=== PATIENT | female | born 1950 | race Caucasian/White ===

== ENCOUNTER 2018-02-22 07:58 | Outpatient (CLI) | payer MEDICARE, OTHER ==
--- NOTE | 2018-02-22 10:28 | MRI ---
MRI BRAIN WITHOUT CONTRAST: Date: 02/22/18 HISTORY: Repeated falls. FINDINGS: No restricted diffusion is seen. There are multiple foci of T2 prolongation in the periventricular wh ite matter consistent with chronic small vessel ischemic disease. No evidence of transcortical infarc t, acute hemorrhage, midline shift, or abnormal extra-axial fluid collections are noted. There is a t iny focus of decreased signal on the gradient echo sequences in the posterior limb of the left kinesiology internship al capsule which may be due to small calcification or old hemorrhage/hemosiderin. The ventricular siz e is appropriate and the basilar cisterns are patent. There is mild mucosal disease in the paranasal sinuses. IMPRESSION: 1. No evidence of acute intracranial process. 2. Chronic small vessel ischemic disease. POS: [facility]
== END 2018-02-22 07:59 | disposition home or self-care (01) ==
LOC: MRI 07:58
PROVIDERS: ATTEND Family Medicine
DX: R29.6 Repeated falls (principal); G93.89 Other specified disorders of brain
CPT/HCPCS: 70551

== ENCOUNTER 2018-06-09 17:32 | Inpatient (IN) | payer MEDICARE, OTHER ==
[2018-06-09 18:29] LABS: #Lymphocytes 0.9 thou/uL (1.20-3.40); #Monocytes 0.9 thou/uL (0.11-0.59); #Neutrophils 14.9 thou/uL (1.40-6.50); %Lymphocytes 5.2 % (21.0-51.0); %Monocytes 5.2 % (0.0-10.0); %Neutrophils 89.6 % (42.0-75.0); Hemoglobin 13.8 g/dL (12.0-16.0); Mean Corpuscular HGB CONC 33.9 g/dL (32.0-36.0); Mean Corpuscular Hemoglobin 33.4 pg (27.0-31.0); Mean Corpuscular Volume 98.7 fL (78.0-98.0); Mean Platelet Volume 6.7 fL (7.4-10.4); Platelet Count 241 thou/uL (130-400); RBC Distribution Width 11.7 % (11.5-14.5); Red Blood Cell (RBC) Count 4.12 mill/uL (4.20-5.40); White Blood Cell (WBC) Count 16.7 thou/uL (4.8-10.8)
[2018-06-09 18:47] LABS: ALT (SGPT) 33 U/L (8-55); AST (SGOT) 41 U/L (5-34); Albumin 3.8 g/dL (3.4-4.8); Alkaline Phosphatase 66 U/L (40-150); Anion Gap 13 mmol/L (10-20); BUN (Urea Nitrogen) 14 mg/dL (9.8-20.1); Bilirubin, Total 0.4 mg/dL (0.2-1.2); Calc. Creatinine Clearance 0 mL/min (70-130); Calcium 9.7 mg/dL (7.8-10.44); Carbon Dioxide 24 mmol/L (23-31); Chloride 100 mmol/L (98-107); Estimated GFR-MDRD 50; Globulin 3.3 g/dL (2.4-3.5); Glucose 122 mg/dL (80-115); Potassium 3.7 mmol/L (3.5-5.1); Protein, Total 7.1 g/dL (6.0-8.3); Sodium 133 mmol/L (136-145)
[2018-06-09] MEDS ORDERED: Ibuprofen 200 MG TAB ONE (20:17)
[2018-06-09] MEDS ORDERED: Acetaminophen 325 MG TAB ONE (20:17)
[2018-06-09] MEDS ORDERED: Piperacillin/Tazobactam 3.375 GM VIAL ONE (20:17)
--- NOTE | 2018-06-09 20:29 | RAD ---
TWO VIEWS RIGHT FOREARM: 06/09/18 HISTORY: Possible cellulitis. Sepsis. FINDINGS: No fracture. No cortical irregularity or periosteal reaction. There is minimal soft tissue swelling i nvolving the proximal forearm soft tissues. IMPRESSION: Minimal soft tissue swelling of the proximal forearm soft tissues. POS: [facility]
--- NOTE | 2018-06-09 21:35 | RAD ---
RIGHT HUMERUS TWO VIEWS: 05/30/18 HISTORY: Possible cellulitis. Sepsis. COMPARISON: 06/04/16. FINDINGS: There does appear to be some soft tissue swelling. No fractures. No cortical irregularity. No periost eal reaction or bone demineralization. IMPRESSION: There appears to be soft tissue swelling predominantly along the distal aspect of the humerus. If con cern for soft tissue infection, further evaluation with MRI may be beneficial. POS: [facility]
[2018-06-09] MEDS ORDERED: Ondansetron PF 4 MG/2 ML Vial IVP PRN (22:00)
[2018-06-09] MEDS ORDERED: Bisacodyl 5 MG TAB PO PRN (22:00)
[2018-06-09] MEDS ORDERED: Ondansetron ODT 4 MG TAB PO PRN (22:00)
[2018-06-09] MEDS ORDERED: Zolpidem Tartrate 5 MG TAB PO PRN (22:00)
[2018-06-09] MEDS ORDERED: Senokot S 8.6-50 MG TAB PO PRN (22:00)
[2018-06-09] MEDS ORDERED: Calcium Carbonate 500 MG ChewTAB PO PRN (22:00)
[2018-06-09] MEDS ORDERED: Acetaminophen 325 MG TAB PO PRN (22:00)
[2018-06-09] MEDS ORDERED: Sodium Chloride 0.9% 1,000 ML IV SCH (23:45)
[2018-06-10 00:34] VITALS: BMI 22.5
--- NOTE | 2018-06-10 00:42 | CT ---
POSTCONTRAST CT OF THE RIGHT UPPER EXTREMITY: 06/09/18 HISTORY: Cellulitis. Evaluate for necrotizing fasciitis. COMPARISON: None. FINDINGS: Postcontrast CT of the right upper extremity demonstrates mild induration of the lateral subcutaneous fat at the level of the distal humerus/humeral condyle. There is also induration of the fat along th e posterior aspect of the elbow and posterior aspect of the proximal forearm. Inflammatory change clif ears to be confined predominantly to the subcutaneous fat. Fat planes between the muscles are preserv ed in the upper extremity, along the level of the humerus. Questionable loss of intramuscular fat hanh aida along the mid portion of the forearm. Evaluation is limited by technique. The distal forearm does demonstrate preservation of fat planes. With regard to the osseous structures, no evidence of fractu re, cortical irregularity or periosteal reaction. IMPRESSION: 1. Induration of the subcutaneous fat involving the distal humerus and proximal forearm as descr ibed above. No evidence of a drainable abscess. 2. Fat plane between the muscles are preserved at the level of the upper forearm. There is quest ionable loss of some of the fat planes in the mid forearm. Findings may be due to technical limitatio ns. Correlate clinically. If there is concern, consider orthopedic consultation/general surgical cons ultation. Additionally, MRI can be performed to better interrogate the muscles of the forearm. POS: [facility]
[2018-06-10] MEDS: Sodium Chloride 0.9% 1,000 ML IV SCH ×2 (00:54→11:50)
[2018-06-10] MEDS ORDERED: Piperacillin/Tazobactam 3.375 GM in Sodium Chloride 0.9% 100 ML IVPB SCH (02:00)
[2018-06-10 05:13] LABS: #Lymphocytes 0.8 thou/uL (1.20-3.40); #Monocytes 0.6 thou/uL (0.11-0.59); #Neutrophils 10.3 thou/uL (1.40-6.50); %Basophils 0.2 % (0.0-1.0); %Eosinophils 0.1 % (0.0-10.0); %Lymphocytes 7.1 % (21.0-51.0); %Monocytes 5.2 % (0.0-10.0); %Neutrophils 87.4 % (42.0-75.0); Hemoglobin 11.8 g/dL (12.0-16.0); Mean Corpuscular HGB CONC 33.7 g/dL (32.0-36.0); Mean Corpuscular Hemoglobin 33.4 pg (27.0-31.0); Mean Platelet Volume 6.6 fL (7.4-10.4); Platelet Count 189 thou/uL (130-400); RBC Distribution Width 11.7 % (11.5-14.5); Red Blood Cell (RBC) Count 3.53 mill/uL (4.20-5.40); White Blood Cell (WBC) Count 11.8 thou/uL (4.8-10.8)
[2018-06-10 05:30] LABS: Anion Gap 10 mmol/L (10-20); BUN (Urea Nitrogen) 16 mg/dL (9.8-20.1); Calc. Creatinine Clearance 53 mL/min (70-130); Calcium 7.7 mg/dL (7.8-10.44); Carbon Dioxide 19 mmol/L (23-31); Chloride 110 mmol/L (98-107); Estimated GFR-MDRD 69; Glucose 99 mg/dL (80-115); Potassium 3.2 mmol/L (3.5-5.1); Sodium 136 mmol/L (136-145)
--- NOTE | 2018-06-10 07:27 | HP ---
CHIEF COMPLAINT: Right upper arm cellulitis. HISTORY OF PRESENT ILLNESS: This is a 68-year-old female with past medical history of GERD; hyperlipidemia; right breast cancer, status post mastectomy; presenting with right upper arm edema and cellulitis. The patient states that she had a mastectomy 8 years ago, and she has been having sepsis and cellulitis for the past 2 years status post mastectomy which was done 8 years ago. The patient also stated that they did a right lymph node removal, and she has been saying that, that was done 6 years ago and now she is having recurrent lymphedema and cellulitis of the right upper arm. The patient does not have any injury or trauma to the right arm. The patient does not have any recent infection that she knows of. The patient states that the right arm spontaneously became erythematous, edematous, and started causing severe pain. The patient denies any fever, nausea, vomiting, dizziness, headaches, chest pain, palpitations, abdominal pain, dysuria, hematuria, diarrhea, or constipation. REVIEW OF SYSTEMS: Positive for right upper arm cellulitis with erythema, increased warmth, otherwise as documented in the HPI. All other systems reviewed and are negative. PAST MEDICAL HISTORY: GERD; hyperlipidemia; right breast cancer, status post mastectomy. PAST SURGICAL HISTORY: Right mastectomy, appendectomy, and x2. FAMILY HISTORY: Reviewed and noncontributory to this visit. SOCIAL HISTORY: The patient drinks occasionally. Denies illicit drug use. The patient does not smoke. PSYCHIATRIC HISTORY: No previous psych history. ALLERGIES: NO KNOWN DRUG ALLERGIES. CURRENT MEDICATIONS: The patient takes; 1. Fenofibrate 48 mg. 2. Letrozole 2.5 mg. 3. Pantoprazole 40 mg. 4. Caltrate units. 5. Iron 65 mg orally. 6. Simvastatin 40 mg. 7. Clindamycin 300 mg t.i.d. PHYSICAL EXAMINATION: VITAL SIGNS: Blood pressure is 101/57, pulse is 117, respiratory rate of 20, temperature of 98.5, and O2 saturation of 94. GENERAL: The patient is lying in bed, does not appear to be in any acute distress. The patient is very pleasant, able to speak to me in full sentences. Appears her stated age. HEENT: Normocephalic, atraumatic. Pupils are equally round and reactive to light. Extraocular movements are intact. No scleral icterus. No conjunctival pallor. Mucous membranes are moist. NECK: Trachea is midline. Full range of motion. No JVD. Supple. LUNGS: Clear to auscultation bilaterally. No wheezing, no rales, no rhonchi appreciated. CARDIAC: Positive S1 and S2. Regular rate and rhythm on exam. ABDOMEN: Soft, nontender, and nondistended. Positive bowel sounds in all quadrants. No rigidity. No guarding. No peritoneal signs. No rebound. EXTREMITIES: The patient has right upper extremity cellulitis that is noted with some warmth and there is erythema noted. There is no trauma to the right upper extremity that can be appreciated. Left upper extremity, the patient has 5/5 strength and good pulses. There is no edema noted. Lower extremities, the patient has 5/5 lower extremity strength. No edema noted. Good pulses bilaterally. NEUROLOGIC: Cranial nerves 2 through 12 grossly intact. No neurologic deficits noted. SKIN: Refer to description of the right upper extremity in the extremity part of the physical exam. PSYCHIATRIC: Normal affect. IMAGING STUDIES: CT of the right upper extremity shows that there is inflammation that is confined to the subcu tissue. There is no gas that can be appreciated. LABORATORY DATA: WBC is 16.7, hemoglobin is 13.8, hematocrit is 40.6, MCV is 98.7, and platelet count is 241. Sodium is 133, potassium is 3.7, chloride is 100, carbon dioxide of 24, BUN is 14, creatinine is 1.09, and glucose is 126. Lactic acid of 1.5. AST is 41, ALT is 33. C-reactive protein of 17.20. ASSESSMENT AND PLAN: This is a 68-year-old female, being admitted for: 1. 2. Sepsis secondary to right upper extremity cellulitis. At this time, we are going to start the patient on vancomycin and we are going to continue vancomycin. We are going to trend the patient's CBCs. We will give the patient p.r.n. medications for pain and fever. We will continue to monitor the patient's progress. 3. History of hyperlipidemia. We will continue the patient on current treatment. 4. Gastroesophageal reflux disease. We will continue the patient on proton pump inhibitors. 5. History of breast CA. At this point, the patient is having recurrent right upper extremity cellulitis due to right lymph node removal. Otherwise, the patient has been stable. We will continue to monitor the patient. 6. Deep venous thrombosis and gastrointestinal prophylaxis. Job ID: [id number]
[2018-06-10] MEDS: Calcium Carbonate + Vit D 1 TAB PO SCH (08:09)
[2018-06-10] MEDS: Enoxaparin Sodium 40 MG/0.4 ML SYRINGE SC SCH (08:09)
[2018-06-10] MEDS: Ferrous Sulfate 325 MG TAB PO SCH (08:10)
[2018-06-10] MEDS ORDERED: Prevnar 13-Val Conj/PF 0.5 ML SYRINGE IM ONE (09:00)
--- NOTE | 2018-06-10 12:25 | PDOC.PN ---
- Subjective Encounter Start Date: 06/10/18 Encounter Start Time: 12:24 -: old records requested/rev Pt seen and examiend, chart reviewed in its entirety. This is my first visit with this patient follow up for NoF/c, no n/V/d/C, no CP or SOB All systems reviewed and neg x as above - Objective Resuscitation Status - Order Detail: 06/09/18 22:00 Resuscitation Status Routine Resuscitation Status: FULL: Full Resuscitation MAR Reviewed: Yes Vital Signs & Weight: Vital Signs (12 hours) Temp Pulse Resp BP Pulse Ox 06/10/18 08:00 97.3 F L 73 16 102/58 L 96 06/10/18 06:10 97.5 F L 69 18 94/56 L 93 L 06/10/18 03:33 97.5 F L 74 16 96/52 L 96 06/10/18 00:52 82 98/57 L Weight Weight 115 lb 3.2 oz Result Diagrams: 06/10/18 04:50 06/10/18 04:50 Radiology Reviewed by me: Yes EKG Reviewed by me: Yes Phys Exam - Physical Examination Constitutional: NAD HEENT: PERRLA, moist MMs, sclera anicteric, oral pharynx no lesions Neck: no nodes, no JVD, supple, full ROM Respiratory: no wheezing, no rales, no rhonchi, clear to auscultation bilateral Cardiovascular: RRR, no significant murmur Gastrointestinal: soft, non-tender, no distention, positive bowel sounds Musculoskeletal: edema present Neurological: non-focal, normal sensation, moves all 4 limbs Lymphatic: no nodes Psychiatric: normal affect, A&O x 3 Skin: no rash, normal turgor, cap refill <2 seconds Dx/Plan (1) Cellulitis of arm, right Code(s): L03.113 - CELLULITIS OF RIGHT UPPER LIMB Status: Acute (2) HTN (hypertension) Code(s): I10 - ESSENTIAL (PRIMARY) HYPERTENSION Status: Acute (3) HX: breast cancer Code(s): Z85.3 - PERSONAL HISTORY OF MALIGNANT NEOPLASM OF BREAST Status: Acute (4) Lymphedema of arm Code(s): I89.0 - LYMPHEDEMA, NOT ELSEWHERE CLASSIFIED Status: Acute - Plan * .
[2018-06-10] MEDS ORDERED: Clindamycin/D5W 300 MG/50 ML BAG IVPB SCH (12:45)
[2018-06-10] MEDS: cefTRIAXone\\ROCEPHIN 2 GM in Sodium Chloride 0.9% 100 ML IVPB SCH (14:06)
[2018-06-10] MEDS: Clindamycin/D5W 900 MG in Premix Bag 1 BAG IVPB SCH ×2 (14:06→21:24)
[2018-06-10] MEDS: Fenofibrate 48 MG TAB PO SCH (14:49)
[2018-06-10] MEDS ORDERED: traMADol HCl 50 MG TAB PO PRN ×2 (16:43)
[2018-06-10] MEDS ORDERED: Vancomycin HCl 1 GM in Premix Bag 1 BAG IVPB SCH (21:00)
[2018-06-10] MEDS: Simvastatin 40 MG TAB PO SCH (21:18)
[2018-06-10] MEDS: Letrozole 2.5 MG TAB PO SCH (21:18)
[2018-06-11] MEDS: Clindamycin/D5W 900 MG in Premix Bag 1 BAG IVPB SCH ×3 (05:50→20:10)
[2018-06-11] MEDS: Sodium Chloride 0.9% 1,000 ML IV SCH ×2 (05:51→12:35)
[2018-06-11] MEDS ORDERED: Diabetic Tussin 200 MG/10 ML UDCUP PO PRN (08:21)
[2018-06-11] MEDS ORDERED: Sodium Chloride 0.65% Nasal 44 ML BOT EA NARE PRN (08:21)
[2018-06-11] MEDS ORDERED: hydrALAZINE 20 MG/ML VIAL SLOW IVP PRN (08:21)
[2018-06-11] MEDS ORDERED: Eucerin (Mineral Oil/Petrolatum,White) 30 gm Jar TOP PRN (08:21)
[2018-06-11] MEDS ORDERED: HYDROcodone/Acetaminophen 5/325 mg Tablet PO PRN (08:21)
[2018-06-11] MEDS ORDERED: Cepastat Lozenges 1 LOZ PO PRN (08:21)
[2018-06-11] MEDS ORDERED: Loperamide HCl 2 MG CAP PO PRN (08:21)
[2018-06-11] MEDS ORDERED: Artificial Tears 18 DROP/0.9 ML EA EYE PRN (08:21)
[2018-06-11] MEDS ORDERED: Loratadine 10 MG TAB PO PRN (08:21)
[2018-06-11] MEDS: Calcium Carbonate + Vit D 1 TAB PO SCH (09:44)
[2018-06-11] MEDS: Fenofibrate 48 MG TAB PO SCH (09:44)
[2018-06-11] MEDS: Ferrous Sulfate 325 MG TAB PO SCH (09:45)
[2018-06-11] MEDS: Saccharomyces boulardii 250 MG CAP PO SCH (09:45)
[2018-06-11] MEDS: Enoxaparin Sodium 40 MG/0.4 ML SYRINGE SC SCH (09:45)
[2018-06-11] MEDS ORDERED: Potassium Chloride 20 MEQ TAB PO SCH (11:30)
--- NOTE | 2018-06-11 11:31 | PDOC.PN ---
- Subjective Encounter Start Date: 06/11/18 Encounter Start Time: 08:10 -: old records requested/rev Patient seen and examined. No new complaints. No overnight events - Objective Resuscitation Status - Order Detail: 06/09/18 22:00 Resuscitation Status Routine Resuscitation Status: FULL: Full Resuscitation MAR Reviewed: Yes Vital Signs & Weight: Vital Signs (12 hours) Temp Pulse Resp BP Pulse Ox 06/11/18 08:00 98.1 F 78 18 102/63 93 L 06/11/18 04:00 98.5 F 85 18 110/66 94 L Weight Weight 115 lb 3.2 oz Result Diagrams: 06/10/18 04:50 06/10/18 04:50 Phys Exam - Physical Examination Constitutional: NAD HEENT: PERRLA, moist MMs, sclera anicteric Neck: no JVD, supple Respiratory: no wheezing, no rales, no rhonchi Cardiovascular: RRR, no significant murmur, no rub Gastrointestinal: soft, non-tender, no distention, positive bowel sounds Musculoskeletal: no edema, pulses present right UE lymphoedema with cellulitis Neurological: non-focal, normal sensation, moves all 4 limbs Lymphatic: no nodes Psychiatric: normal affect, A&O x 3 Skin: no rash, normal turgor Dx/Plan (1) Cellulitis of arm, right Code(s): L03.113 - CELLULITIS OF RIGHT UPPER LIMB Status: Acute (2) Hypokalemia Code(s): E87.6 - HYPOKALEMIA Status: Acute (3) Dyslipidemia Code(s): E78.5 - HYPERLIPIDEMIA, UNSPECIFIED Status: Chronic (4) HTN (hypertension) Code(s): I10 - ESSENTIAL (PRIMARY) HYPERTENSION Status: Chronic (5) HX: breast cancer Code(s): Z85.3 - PERSONAL HISTORY OF MALIGNANT NEOPLASM OF BREAST Status: Chronic (6) Lymphedema of arm Code(s): I89.0 - LYMPHEDEMA, NOT ELSEWHERE CLASSIFIED Status: Chronic - Plan cont current plan of care, plan discussed w/ family, continue antibiotics * medication reviewed as below * symptomatic treatment * discussed with family * replace potassium * continue IV antibiotics today, rocephin and clindamycin * repeat labs tomorrow. Review of Systems - Review of Systems ENT: negative: Ear Pain, Ear Discharge, Nose Pain, Nose Discharge, Nose Congestion, Mouth Pain, Mouth Swelling, Throat Pain, Throat Swelling, Other Respiratory: negative: Cough, Dry, Shortness of Breath, Hemoptysis, SOB with Excertion, Pleuritic Pain, Sputum, Wheezing Cardiovascular: negative: chest pain, palpitations, orthopnea, paroxysmal nocturnal dyspnea, edema, light headedness, other Gastrointestinal: negative: Nausea, Vomiting, Abdominal Pain, Diarrhea, Constipation, Melena, Hematochezia, Other Genitourinary: negative: Dysuria, Frequency, Incontinence, Hematuria, Retention , Other Musculoskeletal: Arm Pain. negative: Neck Pain, Shoulder Pain, Back Pain, Hand Pain, Leg Pain, Foot Pain, Other - Medications/Allergies Allergies/Adverse Reactions: Allergies Allergy/AdvReac Type Severity Reaction Status Date / Time No Known Drug Allergies Allergy Verified 06/10/18 01:09 Medications: Current Medications Acetaminophen (Tylenol) 500 mg PO Q6H PRN PRN Reason: Mild Pain (1-3) Hydrocodone Bitart/Acetaminophen ([place] 5/325) 1 tab PO Q4H PRN PRN Reason: Moderate Pain (4-6) Artificial Tears (Tears Naturale) 2 drop EA EYE PRN PRN PRN Reason: Dry Eyes Bisacodyl (Dulcolax) 10 mg PO DAILYPRN PRN PRN Reason: Constipation Calcium Carbonate (Tums) 1,000 mg PO Q4H PRN PRN Reason: Heartburn or Indigestion Calcium/Vitamin D (Caltrate 600 + Vit D) 2 tab PO DAILY [facility] Last Admin: 06/11/18 09:44 Dose: 2 tab Cholecalciferol (Vitamin D3) 1,000 units PO DAILY [facility] Last Admin: 06/11/18 09:44 Dose: 1,000 units Enoxaparin Sodium (Lovenox) 40 mg SC 0900 [facility] Last Admin: 06/11/18 09:45 Dose: 40 mg Fenofibrate (Tricor) 48 mg PO DAILY [facility] Last Admin: 06/11/18 09:44 Dose: 48 mg Ferrous Sulfate (Feosol) 325 mg PO DAILY [facility] Last Admin: 06/11/18 09:45 Dose: 325 mg Guaifenesin (Robitussin Sf) 200 mg PO Q4H PRN PRN Reason: Cough Hydralazine HCl (Apresoline) 10 mg SLOW IVP Q4H PRN PRN Reason: SBP > 180 and HR < 70 Sodium Chloride (Normal Saline 0.9%) 1,000 mls @ 100 mls/hr IV .Q10H [facility] Last Admin: 06/11/18 05:51 Dose: 1,000 mls Ceftriaxone Sodium 2 gm/ (Sodium Chloride) 100 mls @ 200 mls/hr IVPB Q24HR [facility] Last Admin: 06/10/18 14:06 Dose: 100 mls Clindamycin Phosphate/Dextrose (900 mg/ Device) 50 mls @ 100 mls/hr IVPB Q8HR [facility] Stop: 06/13/18 06:29 Last Admin: 06/11/18 05:50 Dose: 50 mls Letrozole (Femara) 2.5 mg PO HS [facility] Last Admin: 06/10/18 21:18 Dose: 2.5 mg Loperamide HCl (Imodium) 2 mg PO PRN PRN PRN Reason: Diarrhea/Loose Stools Loratadine (Claritin) 10 mg PO DAILYPRN PRN PRN Reason: Sinus Symptoms Mineral Oil/White Petrolatum (Eucerin Cream) 0 gm TOP BIDPRN PRN PRN Reason: Dry Skin Miscellaneous Medication (Pharmacy To Dose) 0 each IVPB PRN PRN PRN Reason: [facility] Pharmacy to Dose Ondansetron HCl (Zofran Odt) 4 mg PO Q6H PRN PRN Reason: Nausea/Vomiting Ondansetron HCl (Zofran) 4 mg IVP Q6H PRN PRN Reason: Nausea/Vomiting Pantoprazole Sodium (Protonix) 40 mg PO DAILY [facility] Last Admin: 06/11/18 09:45 Dose: 40 mg Saccharomyces Boulardii (Florastor) 250 mg PO DAILY [facility] Last Admin: 06/11/18 09:45 Dose: 250 mg Senna/Docusate Sodium (Senokot S) 2 tab PO BIDPRN PRN PRN Reason: Constipation Simvastatin (Zocor) 40 mg PO HS [facility] Last Admin: 06/10/18 21:18 Dose: 40 mg Sodium Chloride (Flush - Normal Saline) 10 ml IVF Q12HR [facility] Last Admin: 06/11/18 09:45 Dose: Not Given Sodium Chloride (Flush - Normal Saline) 10 ml IVF PRN PRN PRN Reason: Saline Flush Sodium Chloride ([place] Nasal [place] 0.65%) 0 ml EA NARE QIDPRN PRN PRN Reason: Nasal Congestion Throat Lozenges (Cepastat Lozenges) 1 basia PO Q2H PRN PRN Reason: Sore Throat Tramadol HCl (Ultram) 50 mg PO Q4H PRN PRN Reason: Moderate Pain (4-6) Tramadol HCl (Ultram) 100 mg PO Q4H PRN PRN Reason: Severe Pain (7-10) Last Admin: 06/10/18 22:16 Dose: 100 mg Zolpidem Tartrate (Ambien) 5 mg PO HSPRN PRN PRN Reason: Insomnia
[2018-06-11] MEDS: cefTRIAXone\\ROCEPHIN 2 GM in Sodium Chloride 0.9% 100 ML IVPB SCH (12:35)
--- NOTE | 2018-06-11 14:28 | PQF ---
CLINICAL DOCUMENTATION IMPROVEMENT CLARIFICATION FORM: ICD-10 Updated PLEASE DO AN ADDENDUM TO THE PROGRESS NOTE WITH ANY DOCUMENTATION UPDATES OR ADDITIONS AND CARRY THROUGH TO DC SUMMARY. THANK YOU. DATE: 06/11/18 ATTN: DR. GAN Please exercise your independent, professional judgment in responding to the clarification form. Clinical indicators are provided on the bottom of this form for your review Please check appropriate box(s) to clarify if the following diagnosis has been ruled in or ruled out: "SEPSIS" [ x ] Ruled in diagnosis [ x ] Continue to treat [ ] Resolved [ ] Ruled out diagnosis [ ] Cannot rule out diagnosis [ ] Other diagnosis [ ] Unable to determine In addition, please specify: Present on Admission (POA): [ x ] Yes [ ] No [ ] Unable to determine For continuity of documentation, please document condition throughout progress notes and discharge summary. Thank You. CLINICAL INDICATORS - SIGNS / SYMPTOMS / LABS ER NOTE: "SEPSIS" H&P: "SEPSIS" TEMP 117 TEMP 102.5 BP 97/53 WBC 16.7 CRP 17.20 RISKS: CELLULITIS- RIGHT UPPER ARM TREATMENT: IV FLUIDS (ER-PRESENT) IV ZOSYN (ER) IV VANCOMYCIN (ER) IV CLINDAMYCIN (06/10-PRESENT) IV ROCEPHIN (06/10-PRESENT) BLOOD CULTURES (This form is maintained as a part of the permanent medical record) 2014 [employer]. All Rights Reserved SHARITA [email or web address] Office: [phone] [facility]
[2018-06-11] MEDS: Letrozole 2.5 MG TAB PO SCH (20:10)
[2018-06-11] MEDS: Simvastatin 40 MG TAB PO SCH (20:10)
[2018-06-12] MEDS: Acetaminophen 500 MG TAB PO PRN ×2 (00:15→20:02)
[2018-06-12] MEDS: Sodium Chloride 0.9% 1,000 ML IV SCH ×3 (00:15→14:11)
[2018-06-12] MEDS: Clindamycin/D5W 900 MG in Premix Bag 1 BAG IVPB SCH ×2 (05:10→13:26)
[2018-06-12] MEDS: Enoxaparin Sodium 40 MG/0.4 ML SYRINGE SC SCH (08:45)
[2018-06-12] MEDS: Calcium Carbonate + Vit D 1 TAB PO SCH (08:45)
[2018-06-12] MEDS: Ferrous Sulfate 325 MG TAB PO SCH (08:46)
[2018-06-12] MEDS: Fenofibrate 48 MG TAB PO SCH (08:46)
[2018-06-12] MEDS: Saccharomyces boulardii 250 MG CAP PO SCH (08:46)
--- NOTE | 2018-06-12 09:43 | PDOC.PN ---
- Subjective Encounter Start Date: 06/12/18 Encounter Start Time: 08:20 Patient seen and examined. No new complaints. No overnight events - Objective Resuscitation Status - Order Detail: 06/09/18 22:00 Resuscitation Status Routine Resuscitation Status: FULL: Full Resuscitation MAR Reviewed: Yes Vital Signs & Weight: Vital Signs (12 hours) Temp Pulse Resp BP Pulse Ox 06/12/18 09:31 98.2 F 69 18 134/76 95 Weight Weight 115 lb 3.2 oz I&O: 06/11/18 06/12/18 06/13/18 06:59 06:59 06:59 Intake Total 2400 Balance 2400 Result Diagrams: 06/10/18 04:50 06/10/18 04:50 Phys Exam - Physical Examination Constitutional: NAD HEENT: PERRLA, moist MMs, sclera anicteric Neck: no JVD, supple Respiratory: no wheezing, no rales, no rhonchi Cardiovascular: RRR, no significant murmur, no rub Gastrointestinal: soft, non-tender, no distention, positive bowel sounds Musculoskeletal: no edema, pulses present right UE cellulitis Neurological: non-focal, normal sensation, moves all 4 limbs Lymphatic: no nodes Psychiatric: normal affect, A&O x 3 Skin: no rash, normal turgor Dx/Plan (1) Cellulitis of arm, right Code(s): L03.113 - CELLULITIS OF RIGHT UPPER LIMB Status: Acute (2) Hypokalemia Code(s): E87.6 - HYPOKALEMIA Status: Acute (3) Dyslipidemia Code(s): E78.5 - HYPERLIPIDEMIA, UNSPECIFIED Status: Chronic (4) HTN (hypertension) Code(s): I10 - ESSENTIAL (PRIMARY) HYPERTENSION Status: Chronic (5) HX: breast cancer Code(s): Z85.3 - PERSONAL HISTORY OF MALIGNANT NEOPLASM OF BREAST Status: Chronic (6) Lymphedema of arm Code(s): I89.0 - LYMPHEDEMA, NOT ELSEWHERE CLASSIFIED Status: Chronic - Plan cont current plan of care, continue antibiotics * medication reviewed as below * symptomatic treatment * continue IV antibiotics * pain controlled * expecting discharge in 24 - 48 hours. Review of Systems - Review of Systems ENT: negative: Ear Pain, Ear Discharge, Nose Pain, Nose Discharge, Nose Congestion, Mouth Pain, Mouth Swelling, Throat Pain, Throat Swelling, Other Respiratory: negative: Cough, Dry, Shortness of Breath, Hemoptysis, SOB with Excertion, Pleuritic Pain, Sputum, Wheezing Cardiovascular: negative: chest pain, palpitations, orthopnea, paroxysmal nocturnal dyspnea, edema, light headedness, other Gastrointestinal: negative: Nausea, Vomiting, Abdominal Pain, Diarrhea, Constipation, Melena, Hematochezia, Other Genitourinary: negative: Dysuria, Frequency, Incontinence, Hematuria, Retention , Other Musculoskeletal: negative: Neck Pain, Shoulder Pain, Arm Pain, Back Pain, Hand Pain, Leg Pain, Foot Pain, Other Skin: negative: Rash, Lesions, Rob, Bruising, Other - Medications/Allergies Allergies/Adverse Reactions: Allergies Allergy/AdvReac Type Severity Reaction Status Date / Time No Known Drug Allergies Allergy Verified 06/10/18 01:09 Medications: Current Medications Acetaminophen (Tylenol) 500 mg PO Q6H PRN PRN Reason: Mild Pain (1-3) Last Admin: 06/12/18 00:15 Dose: 500 mg Hydrocodone Bitart/Acetaminophen ([place] 5/325) 1 tab PO Q4H PRN PRN Reason: Moderate Pain (4-6) Artificial Tears (Tears Naturale) 2 drop EA EYE PRN PRN PRN Reason: Dry Eyes Bisacodyl (Dulcolax) 10 mg PO DAILYPRN PRN PRN Reason: Constipation Calcium Carbonate (Tums) 1,000 mg PO Q4H PRN PRN Reason: Heartburn or Indigestion Calcium/Vitamin D (Caltrate 600 + Vit D) 2 tab PO DAILY [facility] Last Admin: 06/12/18 08:45 Dose: 2 tab Cholecalciferol (Vitamin D3) 1,000 units PO DAILY [facility] Last Admin: 06/12/18 08:46 Dose: 1,000 units Enoxaparin Sodium (Lovenox) 40 mg SC 0900 [facility] Last Admin: 06/12/18 08:45 Dose: 40 mg Fenofibrate (Tricor) 48 mg PO DAILY [facility] Last Admin: 06/12/18 08:46 Dose: 48 mg Ferrous Sulfate (Feosol) 325 mg PO DAILY [facility] Last Admin: 06/12/18 08:46 Dose: 325 mg Guaifenesin (Robitussin Sf) 200 mg PO Q4H PRN PRN Reason: Cough Hydralazine HCl (Apresoline) 10 mg SLOW IVP Q4H PRN PRN Reason: SBP > 180 and HR < 70 Sodium Chloride (Normal Saline 0.9%) 1,000 mls @ 100 mls/hr IV .Q10H [facility] Last Admin: 06/12/18 00:15 Dose: 1,000 mls Ceftriaxone Sodium 2 gm/ (Sodium Chloride) 100 mls @ 200 mls/hr IVPB Q24HR [facility] Last Admin: 06/11/18 12:35 Dose: 100 mls Clindamycin Phosphate/Dextrose (900 mg/ Device) 50 mls @ 100 mls/hr IVPB Q8HR [facility] Stop: 06/13/18 06:29 Last Admin: 06/12/18 05:10 Dose: 50 mls Letrozole (Femara) 2.5 mg PO HS [facility] Last Admin: 06/11/18 20:10 Dose: 2.5 mg Loperamide HCl (Imodium) 2 mg PO PRN PRN PRN Reason: Diarrhea/Loose Stools Loratadine (Claritin) 10 mg PO DAILYPRN PRN PRN Reason: Sinus Symptoms Mineral Oil/White Petrolatum (Eucerin Cream) 0 gm TOP BIDPRN PRN PRN Reason: Dry Skin Miscellaneous Medication (Pharmacy To Dose) 0 each IVPB PRN PRN PRN Reason: [facility] Pharmacy to Dose Ondansetron HCl (Zofran Odt) 4 mg PO Q6H PRN PRN Reason: Nausea/Vomiting Ondansetron HCl (Zofran) 4 mg IVP Q6H PRN PRN Reason: Nausea/Vomiting Pantoprazole Sodium (Protonix) 40 mg PO DAILY [facility] Last Admin: 06/12/18 08:46 Dose: 40 mg Saccharomyces Boulardii (Florastor) 250 mg PO DAILY [facility] Last Admin: 06/12/18 08:46 Dose: 250 mg Senna/Docusate Sodium (Senokot S) 2 tab PO BIDPRN PRN PRN Reason: Constipation Simvastatin (Zocor) 40 mg PO HS [facility] Last Admin: 06/11/18 20:10 Dose: 40 mg Sodium Chloride (Flush - Normal Saline) 10 ml IVF Q12HR [facility] Last Admin: 06/12/18 08:46 Dose: Not Given Sodium Chloride (Flush - Normal Saline) 10 ml IVF PRN PRN PRN Reason: Saline Flush Sodium Chloride ([place] Nasal [place] 0.65%) 0 ml EA NARE QIDPRN PRN PRN Reason: Nasal Congestion Throat Lozenges (Cepastat Lozenges) 1 basia PO Q2H PRN PRN Reason: Sore Throat Tramadol HCl (Ultram) 50 mg PO Q4H PRN PRN Reason: Moderate Pain (4-6) Tramadol HCl (Ultram) 100 mg PO Q4H PRN PRN Reason: Severe Pain (7-10) Last Admin: 06/10/18 22:16 Dose: 100 mg Zolpidem Tartrate (Ambien) 5 mg PO HSPRN PRN PRN Reason: Insomnia
[2018-06-12 10:54] LABS: #Eosinphils 0.1 thou/uL (0.0-0.7); #Lymphocytes 1.3 thou/uL (1.20-3.40); #Monocytes 0.8 thou/uL (0.11-0.59); #Neutrophils 9.6 thou/uL (1.40-6.50); %Basophils 0.1 % (0.0-1.0); %Eosinophils 0.8 % (0.0-10.0); %Lymphocytes 10.9 % (21.0-51.0); %Monocytes 6.4 % (0.0-10.0); %Neutrophils 81.8 % (42.0-75.0); Hemoglobin 12.9 g/dL (12.0-16.0); Mean Corpuscular Volume 99.9 fL (78.0-98.0); Mean Platelet Volume 6.7 fL (7.4-10.4); Platelet Count 232 thou/uL (130-400); RBC Distribution Width 12.1 % (11.5-14.5); Red Blood Cell (RBC) Count 3.92 mill/uL (4.20-5.40); White Blood Cell (WBC) Count 11.8 thou/uL (4.8-10.8)
[2018-06-12 11:17] LABS: Anion Gap 16 mmol/L (10-20); BUN (Urea Nitrogen) 8 mg/dL (9.8-20.1); CRP (Inflammatory) 5.36 mg/dL (= or < 0.5); Calc. Creatinine Clearance 63 mL/min (70-130); Calcium 8.1 mg/dL (7.8-10.44); Carbon Dioxide 16 mmol/L (23-31); Chloride 114 mmol/L (98-107); Estimated GFR-MDRD 83; Glucose 98 mg/dL (80-115); Magnesium 1.2 mg/dL (1.6-2.6); Potassium 3.6 mmol/L (3.5-5.1); Sodium 142 mmol/L (136-145)
[2018-06-12] MEDS: cefTRIAXone\\ROCEPHIN 2 GM in Sodium Chloride 0.9% 100 ML IVPB SCH (13:25)
[2018-06-12] MEDS: Simvastatin 40 MG TAB PO SCH (20:02)
[2018-06-12] MEDS: Letrozole 2.5 MG TAB PO SCH (20:03)
[2018-06-12] MEDS: Cephalexin 250 MG CAP PO SCH (20:03)
[2018-06-13] MEDS: Cephalexin 250 MG CAP PO SCH ×2 (08:06→14:39)
[2018-06-13] MEDS: Enoxaparin Sodium 40 MG/0.4 ML SYRINGE SC SCH (08:06)
[2018-06-13] MEDS: Fenofibrate 48 MG TAB PO SCH (08:08)
[2018-06-13] MEDS: Calcium Carbonate + Vit D 1 TAB PO SCH (08:08)
[2018-06-13] MEDS: Ferrous Sulfate 325 MG TAB PO SCH (08:08)
[2018-06-13] MEDS: Saccharomyces boulardii 250 MG CAP PO SCH (08:08)
--- NOTE | 2018-06-13 10:16 | PDOC.PN ---
- Subjective Encounter Start Date: 06/13/18 Encounter Start Time: 13:00 Subjective: Patient reports no further pain and improved redness in -: right upper extremity. No fever/chills. No other symptoms. - Objective Resuscitation Status - Order Detail: 06/09/18 22:00 Resuscitation Status Routine Resuscitation Status: FULL: Full Resuscitation MAR Reviewed: Yes Vital Signs & Weight: Vital Signs (12 hours) Temp Pulse Resp BP BP Pulse Ox 06/13/18 08:47 98.0 F 86 16 134/77 93 L 06/13/18 08:43 98.1 F 80 16 139/75 97 06/13/18 04:00 97.6 F 76 16 130/76 92 L 06/13/18 00:00 98 F 66 16 128/73 94 L Weight Weight 115 lb 3.2 oz I&O: 06/12/18 06/13/18 06/14/18 06:59 06:59 06:59 Intake Total 2400 400 Balance 2400 400 Result Diagrams: 06/12/18 10:37 06/12/18 10:37 Phys Exam - Physical Examination Constitutional: NAD HEENT: moist MMs Respiratory: no wheezing, no rales, no rhonchi Cardiovascular: RRR, no significant murmur Gastrointestinal: soft, positive bowel sounds 1+ edema to RUE, redness from mid upper arm to mid forearm, blanching, non-tender, no warmth Neurological: non-focal, moves all 4 limbs Psychiatric: normal affect, A&O x 3 Dx/Plan (1) Cellulitis of arm, right Code(s): L03.113 - CELLULITIS OF RIGHT UPPER LIMB Status: Acute Comment: Transitioned to oral Keflex yesterday, WBC almost normalized, no fever (2) Hypokalemia Code(s): E87.6 - HYPOKALEMIA Status: Acute (3) Dyslipidemia Code(s): E78.5 - HYPERLIPIDEMIA, UNSPECIFIED Status: Chronic (4) HTN (hypertension) Code(s): I10 - ESSENTIAL (PRIMARY) HYPERTENSION Status: Chronic (5) HX: breast cancer Code(s): Z85.3 - PERSONAL HISTORY OF MALIGNANT NEOPLASM OF BREAST Status: Chronic (6) Lymphedema of arm Code(s): I89.0 - LYMPHEDEMA, NOT ELSEWHERE CLASSIFIED Status: Chronic - Plan cont current plan of care, continue antibiotics, DVT proph w/lovenox, DVT proph w/SCDs Discharge home today. * . - Discharge Day Encounter end time: 13:25
[2018-06-13 13:03] VITALS: TEMP 97.9
--- NOTE | 2018-06-13 15:45 | DIS ---
DATE OF ADMISSION: 06/10/2018 DATE OF DISCHARGE: 06/13/2018 PRIMARY CARE PHYSICIAN: Dr. Davion Montano. REASON FOR ADMISSION: Cellulitis of right upper extremity. DIAGNOSES AT DISCHARGE: 1. Cellulitis of right upper extremity. 2. Lymphedema of right upper extremity. 3. Hypokalemia, resolved. 4. Dyslipidemia. 5. Hypertension. 6. History of breast cancer. CONSULTATIONS: None. PROCEDURES: 1. Forearm x-ray showing minimal soft tissue swelling and no fracture. 2. Humeral x-ray showing soft tissue swelling predominantly in the distal aspect of the humerus. No fracture. 3. Upper extremity CT showing induration of subcutaneous fat involving the distal humerus, proximal forearm without drain or abscess. No other specific concerns for necrotizing fasciitis. PERTINENT LABORATORY DATA: White blood cell count 16,000 at admission, down to 11,000 at discharge. SUMMARY OF HOSPITAL COURSE: This is a 68-year-old white female with a past medical history of right right-sided breast cancer status post mastectomy, who presented with right upper arm edema and cellulitis. She has had previous cellulitis fluid from this extremity before since the mastectomy. The patient was admitted. CT was done to rule out any evidence of necrotizing fasciitis or gas in the extremity. The patient had IV antibiotics and IV fluids. She had gradual improvement in her symptoms. The day of discharge, the redness was markedly improved and she had resolution of all tenderness to palpation. She had no fever and her white blood cell count improving. She was successfully transitioned over to oral Keflex in the hospital and is being discharged home. DISCHARGE MANAGEMENT: Discharged to home. FOLLOWUP: Follow up with Dr. Montano in 7 days. ACTIVITY: As tolerated. DIET: Regular diet. MEDICATIONS: 1. Keflex 500 mg 3 times a day, 21 caps dispensed. 2. Simvastatin 40 mg at night. 3. Protonix 40 mg daily. 4. Femara 2.5 mg at night. 5. Iron 65 mg daily. 6. Fenofibrate 48 mg daily. 7. Caltrate two tabs daily. 8. Vitamin D3 daily. 9. One A Day Proactive Vitamin 65+ one tab daily. Job ID: [id number]
[2018-06-13 18:27] VITALS: BP 124/75
== END 2018-06-13 15:09 | disposition home or self-care (01) | DRG 872 ==
LOC: ERS 17:32 → 2SW 22:13 → OBSVTOIN 06-10 01:35 → T4-B 06-10 06:12
PROVIDERS: ADMIT Internal Medicine; ATTEND Internal Medicine
DX: A41.9 Sepsis, unspecified organism (principal); L03.113 Cellulitis of right upper limb; I89.0 Lymphedema, not elsewhere classified; E87.6 Hypokalemia; E78.5 Hyperlipidemia, unspecified; I10 Essential (primary) hypertension; K21.9 Gastro-esophageal reflux disease without esophagitis; Z90.11 Acquired absence of right breast and nipple; Z85.3 Personal history of malignant neoplasm of breast; Z90.49 Acquired absence of other specified parts of digestive tract; Z98.890 Other specified postprocedural states
CPT/HCPCS: 36415; 80048; 80053; 83605; 83735; 85025; 86140; 87040; 96360; 96361; 96365; J0696; J1650; J2543; J3370; J3490; J7050

== ENCOUNTER 2018-07-19 07:02 | Emergency (ER) | payer MEDICARE, OTHER ==
[2018-07-19] MEDS ORDERED: cefTRIAXone\\ROCEPHIN 2 GM VIAL ONE (07:58)
[2018-07-19 09:06] LABS: #Basophils 0.1 thou/uL (0.0-0.2); #Lymphocytes 1.5 thou/uL (1.20-3.40); #Monocytes 0.7 thou/uL (0.11-0.59); #Neutrophils 8.2 thou/uL (1.40-6.50); %Basophils 0.7 % (0.0-1.0); %Eosinophils 0.4 % (0.0-10.0); %Monocytes 6.6 % (0.0-10.0); %Neutrophils 78.3 % (42.0-75.0); Hemoglobin 14.8 g/dL (12.0-16.0); Mean Corpuscular Hemoglobin 33.2 pg (27.0-31.0); Mean Platelet Volume 6.3 fL (7.4-10.4); Platelet Count 230 thou/uL (130-400); Red Blood Cell (RBC) Count 4.47 mill/uL (4.20-5.40); White Blood Cell (WBC) Count 10.5 thou/uL (4.8-10.8)
[2018-07-19 09:26] LABS: ALT (SGPT) 48 U/L (8-55); AST (SGOT) 55 U/L (5-34); Albumin 4.3 g/dL (3.4-4.8); Alkaline Phosphatase 89 U/L (40-150); Anion Gap 14 mmol/L (10-20); BUN (Urea Nitrogen) 9 mg/dL (9.8-20.1); Bilirubin, Total 0.5 mg/dL (0.2-1.2); Calc. Creatinine Clearance 0 mL/min (70-130); Calcium 10.9 mg/dL (7.8-10.44); Carbon Dioxide 23 mmol/L (23-31); Chloride 106 mmol/L (98-107); Estimated GFR-MDRD 75; Globulin 3.4 g/dL (2.4-3.5); Glucose 100 mg/dL (80-115); Potassium 3.6 mmol/L (3.5-5.1); Protein, Total 7.7 g/dL (6.0-8.3); Sodium 139 mmol/L (136-145)
== END 2018-07-19 11:20 | disposition home or self-care (01) ==
LOC: ERS 07:02
DX: L02.413 Cutaneous abscess of right upper limb (principal); R00.0 Tachycardia, unspecified; K21.9 Gastro-esophageal reflux disease without esophagitis; E78.5 Hyperlipidemia, unspecified; Z79.899 Other long term (current) drug therapy
CPT/HCPCS: 80053; 83605; 85025; 87040; 96365; 96367; J0696; J3370

== ENCOUNTER 2019-01-04 10:13 | Outpatient (CLI) | payer MEDICARE, OTHER ==
--- NOTE | 2019-01-04 13:06 | BD ---
DEXA BONE DENSITY STUDY: Date: 01/04/19 HISTORY: Postmenopausal. FINDINGS: Lumbar Spine: BMD (g/cm2) L1 1.092 T-Score: +0.9 L2 1.077 T-Score: +0.4 L3 1.009 T-Score: -0.7 L4 1.073 T-Score: +0.1 Total 1.061 T-Score: +0.1 Right Femoral Neck: 0.573 T-Score: -2.5 Total Femur: 0.804 T-Score: -1.1 IMPRESSION: Osteoporosis of the femoral neck and normal bone mineral density of the lumbar spine. POS: [facility]
== END 2019-01-04 10:14 | disposition home or self-care (01) ==
LOC: BICMAMMO 10:13
PROVIDERS: ATTEND Internal Medicine Rheumatology
DX: M81.0 Age-related osteoporosis without current pathological fracture (principal)
CPT/HCPCS: 77080

== ENCOUNTER 2019-07-15 09:09 | Outpatient (CLI) | payer OTHER ==
--- NOTE | 2019-07-15 11:24 | BD ---
BONE DENSITOMETRY USING DEXA: Date: 07/15/2019 HISTORY: Osteoporosis. FINDINGS: Lumbar Spine: BMD (g/cm2) L1 1.181 T-Score: 1.7 Z-Score: 3.6 L2 1.059 T-Score: 0.3 Z-Score: 2.4 L3 1.020 T-Score: -0.6 Z-Score: 1.6 L4 1.090 T-Score: 0.3 Z-Score: 2.5 L1-L4 1.080 T-Score: 0.3 Z-Score: 2.4 Femoral Neck: 0.570 T-Score: -2.5 Z-Score: -0.7 Total Femur: 0.773 T-Score: -1.4 Z-Score: 0.1 There has been interval improvement of 1.8% in the bone mineral density of the lumbar spine and a red uction of 3.9% in the bone mineral density of the proximal femur since 01/04/2019. IMPRESSION: Osteoporosis. POS: OFF
== END 2019-07-15 09:10 | disposition home or self-care (01) ==
LOC: BICMAMMO 09:09
PROVIDERS: ATTEND Internal Medicine Rheumatology
DX: M81.0 Age-related osteoporosis without current pathological fracture (principal)
CPT/HCPCS: 77080

== ENCOUNTER 2019-07-23 08:32 | Outpatient (CLI) | payer MEDICARE, OTHER ==
--- NOTE | 2019-07-25 13:29 | MMO ---
Bilateral MAMMO Bilat Screen [facility]. CLINICAL HISTORY: Patient is 69 years old and is seen for screening. The patient has the following family history of breast cancer: maternal grandmother, at age 84. The patient has a history of right Mastectomy in November, - malignant and left needle biopsy in 2007 - benign - MRI BIOPSY. VIEWS: The views performed were: left craniocaudal with tomosynthesis; left mediolateral oblique with tomosynthesis; and left exaggerated craniocaudal. FILMS COMPARED: The present examination has been compared to prior imaging studies performed at [facility] on 06/17/2011, 06/28/2012, 07/08/2013 and 08/19/2014. This study has been interpreted with the assistance of computer-aided detection. MAMMOGRAM FINDINGS: The breast is heterogeneously dense, which could obscure a lesion on mammography. Finding 1: There is a biopsy clip seen in the left breast. Finding 2: There are stable benign appearing calcifications seen in the left breast. There are no suspicious masses, suspicious calcifications, or new areas of architectural distortion. IMPRESSION: THERE IS NO MAMMOGRAPHIC EVIDENCE OF MALIGNANCY. A ROUTINE FOLLOW-UP MAMMOGRAM IN 1 YEAR IS RECOMMENDED. THE RESULTS OF THIS EXAM WERE SENT TO THE PATIENT. ACR BI-RADS Category 2 - Benign finding MAMMOGRAPHY NOTE: 1. A negative mammogram report should not delay a biopsy if a dominant of clinically suspicious mass is present. 2. Approximately 10% to 15% of breast cancers are not detected by mammography. 3. Adenosis and dense breasts may obscure an underlying neoplasm. Reported by: LOUIE LACEY MD Electonically Signed: [id number]
== END 2019-07-23 08:33 | disposition home or self-care (01) ==
LOC: BICMAMMO 08:32
PROVIDERS: ATTEND Family Medicine
DX: Z12.31 Encounter for screening mammogram for malignant neoplasm of breast (principal); Z80.3 Family history of malignant neoplasm of breast; Z90.11 Acquired absence of right breast and nipple; Z91.89 Other specified personal risk factors, not elsewhere classified
CPT/HCPCS: 77063; 77067

== ENCOUNTER 2019-12-04 18:42 | Emergency (ER) | payer MEDICARE, OTHER ==
[2019-12-04] MEDS ORDERED: Bupivacaine 0.5% 10 ML VIAL ONE (19:30)
[2019-12-04] MEDS ORDERED: Bupivacaine 0.25% 10 ML VIAL ONE (19:30)
[2019-12-04] MEDS ORDERED: Adacel (T-DAP) 0.5 ML SYRINGE ONE (19:50)
== END 2019-12-04 21:05 | disposition home or self-care (01) ==
LOC: ERS 18:42
DX: S01.01XA Laceration without foreign body of scalp, initial encounter (principal); K21.9 Gastro-esophageal reflux disease without esophagitis; E78.5 Hyperlipidemia, unspecified; E78.00 Pure hypercholesterolemia, unspecified; Z23 Encounter for immunization; Z79.899 Other long term (current) drug therapy; W22.8XXA Striking against or struck by other objects, initial encounter
CPT/HCPCS: 12004; 90471; 90715; J3490; S0020

== ENCOUNTER 2019-12-11 19:01 | Emergency (ER) | payer MEDICARE, OTHER | END 2019-12-11 19:52 | disposition home or self-care (01) | LOC: ERS 19:01 | DX: S01.01XD Laceration without foreign body of scalp, subsequent encounter (principal); K21.9 Gastro-esophageal reflux disease without esophagitis; E78.5 Hyperlipidemia, unspecified; E78.00 Pure hypercholesterolemia, unspecified; Z79.899 Other long term (current) drug therapy ==

== ENCOUNTER 2020-08-14 11:16 | Outpatient (CLI) | payer MEDICARE, OTHER | END 2020-08-14 11:17 | disposition home or self-care (01) | LOC: BICMAMMO 11:16 | PROVIDERS: ATTEND Internal Medicine Hematology & Oncology | DX: Z12.31 Encounter for screening mammogram for malignant neoplasm of breast (principal); Z80.3 Family history of malignant neoplasm of breast; Z90.11 Acquired absence of right breast and nipple | CPT/HCPCS: 77063; 77067 ==

== ENCOUNTER 2020-09-09 09:29 | Outpatient (CLI) | payer MEDICARE, OTHER | END 2020-09-09 09:30 | disposition home or self-care (01) | LOC: BICMAMMO 09:29 | PROVIDERS: ATTEND Internal Medicine Rheumatology | DX: M81.0 Age-related osteoporosis without current pathological fracture (principal) | CPT/HCPCS: 77080 ==

== ENCOUNTER 2021-03-15 11:57 | Outpatient (CLI) | payer MEDICARE, OTHER ==
[2021-03-15 16:30] LABS: SARS-CoV-2 NAA Rapid Test Not Detected (NotDetected)
== END 2021-03-15 11:58 | disposition home or self-care (01) ==
LOC: LABBT 11:57
PROVIDERS: ATTEND Internal Medicine Gastroenterology
DX: Z01.812 Encounter for preprocedural laboratory examination (principal); Z12.11 Encounter for screening for malignant neoplasm of colon; Z20.822 Contact with and (suspected) exposure to COVID-19
CPT/HCPCS: U0002

== ENCOUNTER 2021-03-16 06:47 | Observation (INO) | payer MEDICARE, OTHER ==
[2021-03-15 13:01] VITALS: BMI 20.7
[2021-03-16] MEDS ORDERED: PROPOFOL 200 MG/20 ML VIAL ONE (09:11)
[2021-03-16] MEDS ORDERED: Fentanyl 100 MCG/2 ML VIAL ONE (11:00)
[2021-03-16] MEDS ORDERED: Metoprolol Tartrate 5 MG/5 ML VIAL ONE (12:04)
[2021-03-16 13:25] LABS: #Lymphocytes 0.4 thou/uL (1.20-3.40); #Monocytes 0.4 thou/uL (0.11-0.59); #Neutrophils 8.9 thou/uL (1.40-6.50); %Basophils 0.1 % (0.0-1.0); %Lymphocytes 4.2 % (21.0-51.0); %Monocytes 3.8 % (0.0-10.0); %Neutrophils 91.9 % (42.0-75.0); Hemoglobin 15.5 g/dL (12.0-16.0); Mean Corpuscular HGB CONC 34.7 g/dL (32.0-36.0); Mean Corpuscular Hemoglobin 34.2 pg (27.0-31.0); Mean Corpuscular Volume 98.4 fL (78.0-98.0); Mean Platelet Volume 6.1 fL (7.4-10.4); Platelet Count 244 thou/uL (130-400); RBC Distribution Width 11.5 % (11.5-14.5); Red Blood Cell (RBC) Count 4.54 mill/uL (4.20-5.40); White Blood Cell (WBC) Count 9.6 thou/uL (4.8-10.8)
[2021-03-16] MEDS ORDERED: Sodium Chloride 0.9% 500 ML IV SCH (13:30)
[2021-03-16 13:48] LABS: ALT (SGPT) 46 U/L (8-55); AST (SGOT) 52 U/L (5-34); Albumin 3.7 g/dL (3.4-4.8); Alkaline Phosphatase 78 U/L (40-110); Anion Gap 14 mmol/L (10-20); BUN (Urea Nitrogen) 11 mg/dL (9.8-20.1); Bilirubin, Total 0.4 mg/dL (0.2-1.2); Calc. Creatinine Clearance 54 mL/min (70-130); Calcium 9.2 mg/dL (7.8-10.44); Carbon Dioxide 21 mmol/L (23-31); Chloride 107 mmol/L (98-107); Globulin 2.8 g/dL (2.4-3.5); Glucose 122 mg/dL (83-110); Potassium 3.4 mmol/L (3.5-5.1); Protein, Total 6.5 g/dL (5.8-8.1); Sodium 139 mmol/L (136-145)
[2021-03-16] MEDS ORDERED: Acetaminophen 325 MG TAB PO PRN (17:32)
[2021-03-16] MEDS ORDERED: Ondansetron ODT 4 MG TAB PO PRN (17:32)
[2021-03-16] MEDS ORDERED: Potassium Chloride 20 MEQ TAB PO SCH (17:45)
[2021-03-16] MEDS ORDERED: Sodium Chloride 0.9% 1,000 ML IV SCH (17:45)
[2021-03-16] MEDS ORDERED: Acetaminophen 500 MG TAB ONE (18:02)
[2021-03-17 05:02] LABS: #Lymphocytes 1.5 thou/uL (1.20-3.40); #Neutrophils 12.8 thou/uL (1.40-6.50); %Basophils 0.1 % (0.0-1.0); %Eosinophils 0.1 % (0.0-10.0); %Lymphocytes 9.9 % (21.0-51.0); %Monocytes 6.6 % (0.0-10.0); %Neutrophils 83.4 % (42.0-75.0); Hemoglobin 13.5 g/dL (12.0-16.0); Mean Corpuscular HGB CONC 32.5 g/dL (32.0-36.0); Mean Corpuscular Hemoglobin 32.9 pg (27.0-31.0); Mean Platelet Volume 6.5 fL (7.4-10.4); Platelet Count 168 thou/uL (130-400); RBC Distribution Width 11.7 % (11.5-14.5); Red Blood Cell (RBC) Count 4.11 mill/uL (4.20-5.40); White Blood Cell (WBC) Count 15.4 thou/uL (4.8-10.8)
[2021-03-17 05:27] LABS: Anion Gap 13 mmol/L (10-20); BUN (Urea Nitrogen) 12 mg/dL (9.8-20.1); Calc. Creatinine Clearance 61 mL/min (70-130); Calcium 8.4 mg/dL (7.8-10.44); Carbon Dioxide 18 mmol/L (23-31); Chloride 111 mmol/L (98-107); Glucose 99 mg/dL (83-110); Magnesium 1.2 mg/dL (1.6-2.6); Potassium 3.9 mmol/L (3.5-5.1); Sodium 138 mmol/L (136-145)
[2021-03-17 11:39] VITALS: BP 149/85; TEMP 98.5
== END 2021-03-17 13:49 | disposition home or self-care (01) ==
LOC: SDC 06:47 → 2NO 17:36
PROVIDERS: ADMIT Internal Medicine Gastroenterology; ATTEND Family Medicine
PROC: 0DBK8ZX Excision of Ascending Colon, Via Natural or Artificial Opening Endoscopic, Diagnostic (ICD-10-PCS; principal; 2021-03-16)
DX: Z12.11 Encounter for screening for malignant neoplasm of colon (principal); K63.5 Polyp of colon; Q43.8 Other specified congenital malformations of intestine; K57.30 Diverticulosis of large intestine without perforation or abscess without bleeding; K64.4 Residual hemorrhoidal skin tags; R00.0 Tachycardia, unspecified; R09.02 Hypoxemia; E87.6 Hypokalemia; E83.42 Hypomagnesemia; M81.0 Age-related osteoporosis without current pathological fracture; R06.82 Tachypnea, not elsewhere classified; R11.10 Vomiting, unspecified; Z79.890 Hormone replacement therapy; Z79.899 Other long term (current) drug therapy; Z90.49 Acquired absence of other specified parts of digestive tract
CPT/HCPCS: 36415; 71045; 80048; 80053; 83735; 85025; 88305; 93005; 93010; G0378; J2704; J3010; J7050

== ENCOUNTER 2021-08-16 10:50 | Outpatient (CLI) | payer MEDICARE, OTHER | END 2021-08-16 10:51 | disposition home or self-care (01) | LOC: BICMAMMO 10:50 | PROVIDERS: ATTEND Family Medicine | DX: Z12.31 Encounter for screening mammogram for malignant neoplasm of breast (principal); Z80.3 Family history of malignant neoplasm of breast; Z98.890 Other specified postprocedural states | CPT/HCPCS: 77063; 77067 ==

== ENCOUNTER 2021-10-07 14:49 | Outpatient (CLI) | payer MEDICARE, OTHER | END 2021-10-07 14:50 | disposition home or self-care (01) | LOC: BICMAMMO 14:49 | PROVIDERS: ATTEND Internal Medicine Rheumatology | DX: M81.0 Age-related osteoporosis without current pathological fracture (principal); M85.88 Other specified disorders of bone density and structure, other site | CPT/HCPCS: 77080 ==

== ENCOUNTER 2023-05-18 13:17 | Outpatient (CLI) | payer MEDICARE, OTHER | END 2023-05-18 13:18 | disposition home or self-care (01) | LOC: BICMRI 13:17 | PROVIDERS: ATTEND Orthopaedic Surgery | DX: M19.011 Primary osteoarthritis, right shoulder (principal); M75.111 Incomplete rotator cuff tear or rupture of right shoulder, not specified as traumatic; S46.211A Strain of muscle, fascia and tendon of other parts of biceps, right arm, initial encounter ==

== ENCOUNTER 2023-07-03 11:47 | Outpatient (CLI) | payer MEDICARE, OTHER ==
[2023-07-03 13:58] LABS: #Basophils 0.1 10x3/uL (0.0-0.2); #Eosinphils 0.3 10x3/uL (0.0-0.5); #Neutrophils 7.6 10x3/uL (1.5-8.4); %Basophils 0.6 % (0.0-2.0); %Eosinophils 2.5 % (0.0-6.0); %Lymphocytes 16.8 % (18.0-47.0); %Monocytes 9.5 % (0.0-10.0); %Neutrophils 70.3 % (40.0-75.0); Hematocrit 44.2 % (34.9-44.5); Hemoglobin 14.4 g/dL (12.0-15.5); Mean Corpuscular HGB CONC 32.6 g/dL (32.0-36.0); Mean Corpuscular Volume 95.1 fl (81.6-98.3); Mean Platelet Volume 9.5 fl (7.4-10.4); Platelet Count 209 10x3/uL (150-450); RBC Distribution Width 12.5 % (11.5-14.5); Red Blood Cell (RBC) Count 4.65 10x6/uL (3.90-5.03); White Blood Cell (WBC) Count 10.7 10x3/uL (3.5-10.5)
[2023-07-03 14:08] LABS: Prothrombin Time 10.5 sec (9.5-12.1)
[2023-07-03 14:29] LABS: Anion Gap 15 mmol/L (10-20); BUN (Urea Nitrogen) 12 mg/dL (9.8-20.1); Calc. Creatinine Clearance 0 mL/min (70-130); Calcium 9.4 mg/dL (7.8-10.44); Carbon Dioxide 26 mmol/L (23-31); Chloride 107 mmol/L (98-107); Estimated GFR 86; Glucose 62 mg/dL (83-110); Potassium 3.7 mmol/L (3.5-5.1); Sodium 144 mmol/L (136-145)
== END 2023-07-03 11:48 | disposition home or self-care (01) ==
LOC: LABBT 11:47
PROVIDERS: ATTEND Orthopaedic Surgery
DX: Z01.818 Encounter for other preprocedural examination (principal); M19.011 Primary osteoarthritis, right shoulder
CPT/HCPCS: 80048; 85025; 85610; 93005; 93010

== ENCOUNTER 2023-07-05 05:31 | Observation (INO) | payer MEDICARE, OTHER ==
[2023-07-03 12:27] VITALS: BMI 20.1
[2023-07-05] MEDS ORDERED: Tranexamic Acid 1,000 MG/10 ML VIAL ONE (06:00)
[2023-07-05] MEDS ORDERED: Vancomycin 1 GM/200 ML (FROZEN) BAG ONE (06:01)
[2023-07-05] MEDS ORDERED: Sodium Chloride 0.9% 100 ML ONE ×2 (06:01→06:57)
[2023-07-05] MEDS ORDERED: fentaNYL PF 100 MCG/2 ML SYRINGE ONE (06:21)
[2023-07-05] MEDS ORDERED: PROPOFOL 20 ML ONE (06:21)
[2023-07-05] MEDS ORDERED: Midazolam HCl 2 mg/2 ml Vial ONE (06:22)
[2023-07-05] MEDS ORDERED: Lidocaine 1% PF 5 ML VIAL ONE (06:26)
[2023-07-05] MEDS ORDERED: Rocuronium Bromide 10 MG/ML (10ML VIAL) ONE (06:26)
[2023-07-05] MEDS ORDERED: CEFAZOLIN 2 GM VIAL ONE (06:57)
[2023-07-05 07:06] LABS: #Basophils 0.1 thou/uL (0.0-0.2); #Eosinphils 0.2 thou/uL (0.0-0.7); #Monocytes 0.8 thou/uL (0.11-0.59); #Neutrophils 3.1 thou/uL (1.40-6.50); %Basophils 0.8 % (0.0-1.0); %Eosinophils 3.9 % (0.0-10.0); %Lymphocytes 28.3 % (21.0-51.0); %Monocytes 13.7 % (0.0-10.0); %Neutrophils 53.1 % (42.0-75.0); Hematocrit 39.4 % (36.0-47.0); Hemoglobin 13.3 g/dL (12.0-16.0); Mean Corpuscular HGB CONC 33.8 g/dL (32.0-36.0); Mean Corpuscular Hemoglobin 31.9 pg (27.0-31.0); Mean Corpuscular Volume 94.5 fl (78.0-98.0); Mean Platelet Volume 8.9 fL (7.4-10.4); Platelet Count 171 10x3/uL (130-400); RBC Distribution Width 12.2 % (11.5-14.5); Red Blood Cell (RBC) Count 4.17 mill/uL (4.20-5.40); White Blood Cell (WBC) Count 5.9 10x3/uL (4.8-10.8)
[2023-07-05] MEDS ORDERED: fentaNYL 50 mcg/mL 1 mL Vial SLOW IVP PRN (08:39)
[2023-07-05] MEDS ORDERED: Ropivacaine 0.2% 550 ML 550 ML NERVE BLCK SCH (08:45)
[2023-07-05] MEDS ORDERED: Promethazine HCl 25 MG/ML VIAL IM PRN ×2 (08:45→10:36)
[2023-07-05] MEDS ORDERED: traMADol HCl 50 MG TAB PO PRN ×2 (08:45)
[2023-07-05] MEDS ORDERED: Zolpidem Tartrate 5 MG TAB PO PRN ×2 (08:45→11:48)
[2023-07-05] MEDS ORDERED: Ondansetron PF 4 MG/2 ML Vial IVP PRN ×2 (08:45→11:48)
[2023-07-05] MEDS ORDERED: HYDROcodone/Acetaminophen 10/325 mg Tablet PO PRN ×2 (08:45)
[2023-07-05] MEDS ORDERED: Dexamethasone 4 mg/ml Vial ONE (09:30)
[2023-07-05] MEDS ORDERED: Ondansetron PF 4 MG/2 ML Vial ONE (09:30)
[2023-07-05] MEDS ORDERED: Ropivacaine 0.2% HCl/PF 20 ML ONE (09:53)
[2023-07-05] MEDS ORDERED: Ropivacaine 0.5% HCl/PF (150 MG/30 ML VIAL) ONE (09:53)
[2023-07-05] MEDS ORDERED: HYDROmorphone 2 MG/ML VIAL SLOW IVP PRN (10:36)
[2023-07-05] MEDS ORDERED: Ondansetron HCl/PF 4 MG/2 ML Vial IVP PRN (10:36)
[2023-07-05] MEDS ORDERED: Ketorolac Tromethamine 30 MG (1 mL) VIAL ONE (10:42)
[2023-07-05] MEDS ORDERED: SUGAMMADEX SODIUM 200 MG/2 ML VIAL ONE (10:42)
[2023-07-05] MEDS ORDERED: MINERAL OIL/WHITE PETROLATUM 3.5 GM TUBE ONE (11:02)
[2023-07-05] MEDS ORDERED: Methocarbamol 1 GM (10 mL) VIAL SLOW IVP PRN (11:48)
[2023-07-05] MEDS ORDERED: Ondansetron ODT 4 MG TAB PO PRN (11:48)
[2023-07-05] MEDS ORDERED: diphenhydrAMINE 50 MG CAP PO PRN (11:48)
[2023-07-05] MEDS ORDERED: Milk Of Magnesia 30 ML UDCUP PO PRN (11:48)
[2023-07-05] MEDS ORDERED: Acetaminophen 325 MG TAB PO PRN (11:48)
[2023-07-05] MEDS ORDERED: Methocarbamol 500 MG TAB PO PRN (11:48)
[2023-07-05] MEDS ORDERED: Bisacodyl 10 MG SUPP PR PRN (11:48)
[2023-07-05] MEDS ORDERED: hydrALAZINE 20 MG/ML VIAL ONE (12:42)
[2023-07-05] MEDS: Ketorolac Tromethamine 30 MG (1 mL) VIAL IVP SCH ×3 (14:50→23:52)
[2023-07-05] MEDS: CEFAZOLIN 2 GM in Sodium Chloride 0.9% 100 ML IVPB SCH ×2 (15:06→23:51)
[2023-07-05] MEDS: Famotidine 20 MG TAB PO SCH (20:29)
[2023-07-06 05:03] VITALS: TEMP 97.8
[2023-07-06] MEDS: Dextrose 5 %-0.45 % NaCl 1,000 ML IV SCH ×2 (05:12→05:30)
[2023-07-06] MEDS: Ketorolac Tromethamine 30 MG (1 mL) VIAL IVP SCH (05:24)
[2023-07-06 08:56] VITALS: BP 130/78
[2023-07-06] MEDS ORDERED: Bupivacaine HCl 0.5%/Epinephrine 1:200,000/PF 30 ml Vial ONE (10:15)
[2023-07-06] MEDS: Famotidine 20 MG TAB PO SCH (10:31)
== END 2023-07-06 13:00 | disposition home or self-care (01) ==
LOC: SDC 05:31 → SURG A 08:20
PROVIDERS: ADMIT Orthopaedic Surgery; ATTEND Orthopaedic Surgery
PROC: 0RRJ00Z Replacement of Right Shoulder Joint with Reverse Ball and Socket Synthetic Substitute, Open Approach (ICD-10-PCS; principal; 2023-07-05)
PROC: 0LS30ZZ Reposition Right Upper Arm Tendon, Open Approach (ICD-10-PCS; 2023-07-05)
DX: S46.011A Strain of muscle(s) and tendon(s) of the rotator cuff of right shoulder, initial encounter (principal); S46.211A Strain of muscle, fascia and tendon of other parts of biceps, right arm, initial encounter; M19.011 Primary osteoarthritis, right shoulder; M75.21 Bicipital tendinitis, right shoulder; M62.511 Muscle wasting and atrophy, not elsewhere classified, right shoulder; Z96.642 Presence of left artificial hip joint; Z90.49 Acquired absence of other specified parts of digestive tract; Z87.891 Personal history of nicotine dependence; X58.XXXA Exposure to other specified factors, initial encounter
CPT/HCPCS: 23430; 23472; 85025; 86140; 96374; 96375; 96376 ×2; 97116; A4306; C1713 ×6; C1776 ×4; G0378 ×2; J0360; J3370; J1100; J1885; J2250; J2405; J2704; J2795; J3490